=== PATIENT | female | born 1965 | race African-American/Black ===

== ENCOUNTER 2016-09-26 10:41 | Emergency (ER) | payer OTHER ==
[2016-09-26 10:31] LABS: URINE SOURCE CLEAN CATCH
[2016-09-26 10:35] LABS: URINE APPEARANCE TURBID; URINE BILIRUBIN NEG (NEG); URINE BLOOD 3+ (NEG); URINE COLOR YELLOW; URINE GLUCOSE >1000 MG/DL (NEG); URINE KETONE TRACE (NEG); URINE LEUKOCYTE ESTERASE 1+ (NEG); URINE NITRATE NEG (NEG); URINE PROTEIN 3+ (NEG); URINE SPECIFIC GRAVITY 1.048 (1.003-1.035); URINE UROBILINOGEN 0.2 MG/DL (NEG)
[2016-09-26 10:38] LABS: CULTURE INDICATED? YES; URBCS1 AUWI INNUM /[HPF] (0-2); URINE BACTERIA AUWI 1+ (NEGATIVE); URINE SQUAMOUS EPITHELIAL CELL NONE SEEN /[HPF]; UWBCS1 AUWI INNUM (0-5)
[~2016-09-26 10:41] MED LIST: GLUCOTROL PO
[2016-09-29 13:03] LABS: CHLAMYDIA TRACH Not Detected (Not Detected); N GONOR Not Detected (Not Detected)
== END 2016-09-26 13:06 | disposition home or self-care (01) ==
LOC: CFTX 10:41
PROVIDERS: Physician Assistant
DX: N30.01 Acute cystitis with hematuria (principal); E11.65 Type 2 diabetes mellitus with hyperglycemia
CPT/HCPCS: 36415; 81003; 82947; 87086; 87088; 87186; 87491; 87591; 87808; 87905; 96361; 96374; 99284; J0696